=== PATIENT | female | born 1945 | race Caucasian/White ===

== ENCOUNTER 2020-01-29 10:40 | Day surgery (SDC) | payer MEDICARE, SELFPAY ==
[2020-01-24 12:19] VITALS: BMI 25.4
--- NOTE | 2020-01-25 15:10 | SUR.PREOP ---
01/25/2020 @ 3831--PHONE CALL MADE TO PATIENT. PATIENT UNDERSTANDS THAT LAB WORK AND COVID TESTING NEEDS TO BE COMPLETED THE MORNING OF SURGERY. PATIENT UNDERSTANDS IF LAB WORK AND COVID-19 TESTS ARE NOT COMPLETED BY 12PM ON THAT DATE, THE SURGERY SCHEDULED WILL BE CANCELLED AND RESCHEDULED FOR ANOTHER TIME.
[2020-01-29] VITALS (9 sets, daily range): BP systolic 106–155; BP diastolic 64–95; PULSE 66–69; RESP 18; TEMP 36.3–36.6; O2SAT 95–98
[2020-01-29 12:45] LABS: Coronavirus 19 IgG Antibody Negative (Negative); Coronavirus 19 IgM Antibody Negative (Negative)
--- NOTE | 2020-01-29 13:25 | FL_ITS ---
PROCEDURE: FL ERCP CLINICAL INDICATION: rule out cancer Common bile duct dilatation COMPARISON: No exams were available for comparison FINDINGS: Fluoroscopy time: 1 minutes and 3 seconds Images submitted demonstrates cannulation of the common bile duct. There has been a prior cholecystectomy. Common bile duct is dilated at approximately 13 mm. No intraluminal filling defects are evident. IMPRESSION: Prior cholecystectomy with dilated common bile duct Dictated by: Luis Flores MD 03/22/2020 06:54 Electronically signed by Luis Flores MD in [place] 03/22/2020 06:54
--- NOTE | 2020-01-29 13:30 | P.PN_ITS ---
[facility] Anesthesia Checklist - Structural Data Admitted From: Home Planned Operative Procedure/s: ercp Consent for Planned Operative Procedure(s) Verified: Yes - Airway Assessment C-Spine Mobility Assessed: Yes TMJ Mobility Assessed: Yes Dentition: Good Dentition - Neurological Assessment Level of Consciousness: Awake, Alert, Appropriate - Anesthesia Plan Anesthesia Risk discussed: Yes Anesthesia Plan: Verified ASA Class: III Anesthesia Type: MAC [facility] History I have reviewed the patient's past medical history: Yes Medical History: Reports:: Hypertension Denies:: Cancer, Diabetes Mellitus Type 1, Diabetes Mellitus Type 2, Internal Pacemaker, MRSA, Seizures *Have you ever received a pneumonia vaccine?: Yes *Have you received a flu vaccine this season?: Yes Anesthesia experience/problems:: none Laterality Cases: Bilateral: Other Other Surgeries: No: Pacemaker Amputation: No Fractures: No - *Social History Educational Level: Attended College Smoking Status: Never smoker Alcohol Intake: current Alcohol Intake Frequency:: holidays/special occasions only Substance Use Type: denies use *Occupational Status:: retired Housing: house Household Members: spouse *Travel in the last 8 weeks: None Family Hx:: Coronary Artery Disease, Heart Attack, Hypertension, Tuberculosis, Alcoholism
--- NOTE | 2020-01-29 13:38 | HMH.PROC ---
[facility] Procedure Note Procedure Note:: ERCP procedure Report: Endoscopic retrograde cholangiopancreatography with biliary sphincterotomy Endoscopist: Naveen White II, MD Referring Physician: Devin Aaron MD Date of Procedure: January 29, 2020 Equipment: Olympus 180 side viewing endoscope duodenoscope Sedation: MAC sedation Indication: Mrs. Matias is a 74-year-old female with a history of primary biliary cholangitis and autoimmune hepatitis. She has been on azathioprine 100 mg by mouth daily and ursodiol 600 mg by mouth twice daily. The patient did have some recent elevated creatinine. She did go to the emergency department in late November and a CAT scan showed biliary ductal dilation that was increased from prior exam (14 mm CBD as opposed to prior exam of 11 mm CBD. The patient did have alkaline phosphatase level of 153 and total bilirubin 2.2. This did decline with rehydration. A subsequent MRCP showed primarily CBD ductal dilation tapering at the ampulla. 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 The patient has had prior cholecystectomy. She did receive hydrocodone during her hospitalization. Procedure: Prior to the procedure, a history and physical exam was performed, and patient's medications and allergies were reviewed. The risks, benefits and alternatives of the sedation and procedure were discussed with the patient. All questions were answered and informed consent was obtained. The patient was brought to the fluoroscopic radiology room. Patient identification and proposed procedure were verified by the physician and the nurse. The patient was placed in a swimmer's position between left lateral decubitus and prone position and the scope was passed under direct vision. Throughout the procedure, the patient's blood pressure, pulse, and oxygen saturations were monitored continuously. The ERCP was accomplished without difficulty. The patient tolerated the procedure well. Findings: The side-viewing duodenal scope was passed directly into the upper esophagus and advanced to the second portion of the duodenum. There was some peptic fluid/bile reflux within the stomach with some semisolid food material suggestive of duodenal reflux as well as gastric dysmotility. There was mild reactive gastropathy of the antrum. The duodenum was normal. The ampulla was well visualized. The common bile duct was selectively cannulated with a guidewire. The cholangiogram did show a 13 to 14 mm common bile duct with normal filling of the intrahepatic biliary system (mildly dilated). The cystic duct stump was normal.. There did not appear to be attenuation of the intrahepatic biliary system. There were no filling defects. There was delayed drainage of bile and contrast from the biliary system. This was felt to be possible sphincter of Oddi dysfunction because of the dilation and delayed drainage. A biliary sphincterotomy was performed generously. There was excellent decompression of the biliary system with flow of bile and contrast. The pancreatic duct was not cannulated intentionally. The procedure was ended. Impression: 1. 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 She should have biochemical improvement of liver chemistries. I will discuss the findings with patient and family.
[2020-01-30 09:53] LABS: CA 19-9 69 U/mL (0-35); CEA 6.9 ng/mL (0.0-4.7)
[2020-01-30 15:18] LABS: IgG, Subclass 1 319 mg/dL (248-810); IgG, Subclass 2 175 mg/dL (130-555)
[2020-01-30 15:37] LABS: IgG, Subclass 3 84 mg/dL (15-102)
== END 2020-01-29 13:10 | disposition home or self-care (01) ==
LOC: OUTP 10:42
PROVIDERS: PCP Family Medicine; Visit Provider Internal Medicine Gastroenterology
PROC: (CPT 43262; principal; 2020-01-29 13:00)
DX: K21.9 Gastro-esophageal reflux disease without esophagitis (principal); K31.9 Disease of stomach and duodenum, unspecified; Z87.19 Personal history of other diseases of the digestive system; K86.2 Cyst of pancreas; K75.4 Autoimmune hepatitis; Z79.899 Other long term (current) drug therapy; Z90.49 Acquired absence of other specified parts of digestive tract; I10 Essential (primary) hypertension; Z87.442 Personal history of urinary calculi; Z88.0 Allergy status to penicillin; Z88.1 Allergy status to other antibiotic agents; Z88.8 Allergy status to other drugs, medicaments and biological substances; R93.2 Abnormal findings on diagnostic imaging of liver and biliary tract
CPT/HCPCS: 43262; 74330; 82378; 82787; 86316; 86328; Q9967